=== PATIENT | male | born 1950 | race Caucasian/White ===

== ENCOUNTER → 2020-07-03 | Outpatient (CLI) | payer OTHER ==
[~2020-07-03] MED LIST: ACET-1600 PO; AMLO-150 PO; ASPI-496 PO; GABA300C PO; MIRT-34 PO; PRAV80TA2 PO; PRIM50TA34 PO; SERT100T PO
[2020-07-03 12:03] LABS: BASOPHILS # (AUTO) 0.01 x10^3/uL (0-0.1); BASOPHILS % (AUTO) 0 % (0-1); EOSINOPHILS # (AUTO) 0.09 x10^3/uL (0-0.4); EOSINOPHILS % (AUTO) 2 % (1-7); LYMPHOCYTES # (AUTO) 1.06 x10^3/uL (1-3.4); LYMPHOCYTES % (AUTO) 25 % (22-44); MD NO; MEAN CORPUSCULAR HEMOGLOBIN 30.4 pg (27.5-34.5); MEAN CORPUSCULAR HGB CONC 34.2 g/dL (33.2-36.2); MEAN CORPUSCULAR VOLUME 88.9 fL (81-97); MEAN PLATELET VOLUME 8.2 fL (7.4-10.4); MONOCYTES # (AUTO) 0.45 x10^3/uL (0.2-0.8); MONOCYTES % (AUTO) 11 % (2-9); NEUTROPHILS # (AUTO) 2.65 x10^3/uL (1.8-6.8); NEUTROPHILS % (AUTO) 62 % (42-75); PLATELET COUNT 194 x10^3/uL (130-400); RED BLOOD COUNT 4.56 x10^6/uL (4.38-5.82); RED CELL DISTRIBUTION WIDTH 14.3 % (9.4-14.8)
[2020-07-03 12:04] LABS: MICROSCOPIC NOT IND
[2020-07-03 12:12] LABS: ANION GAP 3 mmol/L (5-15); CALCIUM 8.9 mg/dL (8.5-10.1); CHLORIDE 109 mmol/L (98-107)
[2020-07-03 12:45] LABS: INTERNATIONAL NORMALIZED RATIO 0.98 (0.93-1.1); PROTHROMBIN TIME 10.1 Seconds (9.6-11.5)
== END | disposition home or self-care (01) ==
LOC: STAR 10:50
PROVIDERS: ATTEND Neurological Surgery
DX: Z01.811 Encounter for preprocedural respiratory examination (principal); Z01.812 Encounter for preprocedural laboratory examination; Z01.810 Encounter for preprocedural cardiovascular examination; R94.31 Abnormal electrocardiogram [ECG] [EKG]; R82.90 Unspecified abnormal findings in urine; R79.1 Abnormal coagulation profile; M48.02 Spinal stenosis, cervical region; M47.12 Other spondylosis with myelopathy, cervical region; M54.12 Radiculopathy, cervical region; M79.5 Residual foreign body in soft tissue; T17.898A Other foreign object in other parts of respiratory tract causing other injury, initial encounter; X58.XXXA Exposure to other specified factors, initial encounter; Y93.89 Activity, other specified; Y92.89 Other specified places as the place of occurrence of the external cause; Y99.8 Other external cause status
CPT/HCPCS: 36415; 71046; 80048; 81003; 85025; 85610; 85730; 93005

== ENCOUNTER 2020-11-06 12:38 | Day surgery (SDC) | payer OTHER ==
[~2020-11-06] VITALS: Ht 180.3 cm; Wt 100.0 kg
[~2020-11-06 12:38] MED LIST changes: +ASPI81TA45 PO; +BACL5TAB PO; +CYCL-259 PO; +DICLOFENAC 1% TP; +FAMO-79 PO; +HYDR-3246 PO; +MELA3TAB62 PO; +METH4TAB2 PO; +OXYC1TAB18 PO; +TIZA4CAP PO
[2020-11-06] MEDS ORDERED: OXYC-307 PO (13:25)
[2020-11-06] MEDS ORDERED: hydrALAzine 20 MG/ML, 1ML IV PRN (13:30)
[2020-11-06] MEDS ORDERED: PROMETHAZINE 25 MG/ML, 1ML IVPush PRN (13:30)
[2020-11-06] MEDS ORDERED: LACTATED RINGERS 1,000 ML IV SCH (13:30)
[2020-11-06] MEDS ORDERED: CHLORHEXIDINE 15 ML UDC MM ONE (13:30)
[2020-11-06] MEDS ORDERED: LABETALOL 5MG/ML, 20ML IV PRN (13:30)
[2020-11-06] MEDS ORDERED: DIPHENHYDRAMINE 50 MG/ML, 1ML IVPush PRN (13:30)
[2020-11-06] MEDS ORDERED: OXYcodone 5 MG/5 ML ORAL.SOL UDC PO PRN (13:30)
[2020-11-06] MEDS ORDERED: HALOPERIDOL 5 MG/ML IV PRN (13:30)
[2020-11-06] MEDS ORDERED: MEPERIDINE/PF 25MG/0.5ML IVPush PRN (13:30)
[2020-11-06 13:31] VITALS: BP 145/95
[2020-11-06 13:41] LABS: BASOPHILS % (AUTO) 1 % (0-1); EOSINOPHILS % (AUTO) 2 % (1-7); LYMPHOCYTES % (AUTO) 19 % (22-44); MEAN CORPUSCULAR HEMOGLOBIN 30.2 pg (27.5-34.5); MEAN CORPUSCULAR HGB CONC 33.9 g/dL (33.2-36.2); MEAN PLATELET VOLUME 7.7 fL (7.4-10.4); MONOCYTES % (AUTO) 8 % (2-9); NEUTROPHILS % (AUTO) 71 % (42-75); PLATELET COUNT 220 x10^3/uL (130-400); RED BLOOD COUNT 4.61 x10^6/uL (4.38-5.82); RED CELL DISTRIBUTION WIDTH 13.9 % (9.4-14.8)
[2020-11-06 13:42] LABS: MD NO
[2020-11-06 13:44] LABS: MICROSCOPIC NOT IND
[2020-11-06] MEDS ORDERED: CHLORHEXIDINE 15 ML UDC ONE (13:45)
[2020-11-06 13:51] LABS: INTERNATIONAL NORMALIZED RATIO 0.98 (0.93-1.1); PROTHROMBIN TIME 10.4 Seconds (9.6-11.5)
[2020-11-06 13:52] LABS: ANION GAP 5 mmol/L (5-15); CALCIUM 8.8 mg/dL (8.5-10.1); CHLORIDE 107 mmol/L (98-107); CREATININE 0.93 mg/dL (0.7-1.3)
[2020-11-06] MEDS ORDERED: EPINEPHRINE 1 MG/ML, 1ML ONE (14:35)
[2020-11-06] MEDS ORDERED: BUPIVACAINE/PF 0.25% ONE (14:35)
[2020-11-06] MEDS ORDERED: BACITRACIN 50,000 UNIT ONE (14:36)
[2020-11-06] MEDS ORDERED: VANCOMYCIN 500 MG ONE (15:40)
[2020-11-06] MEDS ORDERED: FENTANYL PF 250 MCG/5ML ONE (15:43)
[2020-11-06] MEDS ORDERED: MIDAZOLAM 1 MG/ML, 2ML ONE (15:43)
[2020-11-06] MEDS ORDERED: EPHEDRINE 50 MG/ML, 1ML ONE (16:07)
[2020-11-06] MEDS ORDERED: ONDANSETRON 2MG/ML, 2ML ONE (16:25)
[2020-11-06] MEDS ORDERED: CEFAZOLIN 1,000 MG ONE (16:25)
[2020-11-06] MEDS ORDERED: DEXAMETHASONE 4 MG/ML, 5ML ONE (16:25)
[2020-11-06] MEDS ORDERED: SUCCINYLCHOLINE 20 MG/ML, 10ML ONE (16:25)
[2020-11-06] MEDS ORDERED: PROPOFOL 10 MG/ML, 20ML ONE (16:25)
[2020-11-06] MEDS ORDERED: OXYcodone 5 MG/5 ML ORAL.SOL UDC ONE (16:34)
[2020-11-06] MEDS ORDERED: FENTANYL PF 100 MCG/2ML ONE (16:34)
[2020-11-06] MEDS: FENTANYL PF 100 MCG/2ML IV PRN ×2 (16:51→16:59)
[2020-11-06] MEDS ORDERED: HYDROmorphone 1 MG/ML, 1ML INJ ONE (17:03)
[2020-11-06] MEDS: HYDROmorphone 1 MG/ML, 1ML INJ IVPush PRN ×2 (17:05→17:18)
== END 2020-11-06 19:16 | disposition home or self-care (01) ==
LOC: OUT 12:38
PROVIDERS: ATTEND Neurological Surgery
DX: T81.31XA Disruption of external operation (surgical) wound, not elsewhere classified, initial encounter (principal); I10 Essential (primary) hypertension; F32.9 Major depressive disorder, single episode, unspecified; Z20.828 Contact with and (suspected) exposure to other viral communicable diseases; Z79.82 Long term (current) use of aspirin; Z79.01 Long term (current) use of anticoagulants; Z79.899 Other long term (current) drug therapy; Z98.1 Arthrodesis status; Z98.890 Other specified postprocedural states; Y83.8 Other surgical procedures as the cause of abnormal reaction of the patient, or of later complication, without mention of misadventure at the time of the procedure
CPT/HCPCS: 10180; 36415; 80048; 81003; 85025; 85610; 85730; 87635; 93005; J0330; J0690; J1100; J1170; J2250; J2405; J2704; J3010; J3370; J7120; J0171